=== PATIENT | male | born 1970 | race American Indian/Alaskan Native ===

== ENCOUNTER 2020-09-23 12:15 | Emergency (ER) | payer SELFPAY ==
[2020-09-23 12:51] VITALS: BP 191/101
--- NOTE | 2020-09-23 14:41 | Emergency Department Report ---
ED Upper Extremity Inj HPI - General Chief Complaint: Wound/Laceration Stated Complaint: SMASHED FINGER Time Seen by Provider: 09/23/20 14:27 Source: patient Mode of arrival: Ambulatory Limitations: No Limitations - History of Present Illness Initial Comments: 50-year-old -[place] male presents to the emergency room stating he smashed his left index finger. Patient states he is unaware of his last tetanus shot. Patient reports no past medical history. States he does not take any medications on a daily basis. He has no known drug allergies. This happened at work. MD Complaint: Injury to:: left, finger -: This afternoon - Related Data Previous Rx's Medication Instructions Recorded Last Taken Type Acetaminophen/Codeine [Tylenol 1 tab PO Q4HR PRN #15 tablet 09/23/20 Unknown Rx /Codeine # 3 tab] Ibuprofen [Motrin 800 MG tab] 800 mg PO Q8HR PRN #15 tablet 09/23/20 Unknown Rx cephALEXin [Keflex] 500 mg PO Q12HR #20 cap 09/23/20 Unknown Rx Allergies Allergy/AdvReac Type Severity Reaction Status Date / Time No Known Allergies Allergy Unverified 09/23/20 12:49 ED Review of Systems ROS: Stated complaint: SMASHED FINGER Other details as noted in HPI ED Past Medical Hx - Past Medical History Previous Medical History?: No - Surgical History Additional Surgical History: ELBOW - Medications Home Medications: Home Medications Medication Instructions Recorded Confirmed Last Taken Type Acetaminophen/Codeine [Tylenol 1 tab PO Q4HR PRN #15 tablet 09/23/20 Unknown Rx /Codeine # 3 tab] Ibuprofen [Motrin 800 MG tab] 800 mg PO Q8HR PRN #15 tablet 09/23/20 Unknown Rx cephALEXin [Keflex] 500 mg PO Q12HR #20 cap 09/23/20 Unknown Rx ED Physical Exam - General Limitations: No Limitations General appearance: alert - Head Head exam: Present: atraumatic, normocephalic - Eye Eye exam: Present: normal appearance - ENT ENT exam: Present: mucous membranes moist - Neck Neck exam: Present: normal inspection - Respiratory Respiratory exam: Absent: respiratory distress, accessory muscle use - Cardiovascular Cardiovascular Exam: Present: regular rate - Expanded Upper Extremity Exam Left Hand Wrist exam: Present: full ROM, swelling (Tip of left index), laceration, erythema Vascular: Present: normal capillary refill - Back Exam Back exam: Present: normal inspection - Neurological Exam Neurological exam: Present: alert, oriented X3, normal gait - Psychiatric Psychiatric exam: Present: normal affect, normal mood - Skin Skin exam: Present: warm, dry, intact, normal color. Absent: rash ED Course Vital Signs 09/23/20 12:50 Temperature 97.8 F Pulse Rate 81 Respiratory 18 Rate Blood Pressure 191/101 O2 Sat by Pulse 97 Oximetry - Laceration /Wound Repair Left Finger Wound Location: upper extremity Wound's Depth, Shape: into muscle, irregular Wound Explored: no foreign body removed Irrigated w/ Saline (ccs): 250 Betadine Prep?: Yes Anesthesia: 1% Lidocaine Volume Anesthetic (ccs): 3 Wound Debrided: minimal Wound Repaired With: sutures Suture Size/Type: 3:0, proline Number of Sutures: 5 Sterile Dressing Applied?: Yes Progress: Patient tolerated well ED Medical Decision Making - Radiology Data Radiology results: report reviewed [facility] [address] [place] [address] XRay Report Signed Patient: RITCHIE MESSINA MR#: [id number] : 1970 Acct:[id number] Age/Sex: 50 / M ADM Date: 09/23/20 Loc: ED Attending Dr: Ordering Physician: KENTRELL BUNCH Date of Service: 09/23/20 Procedure(s): XR finger(s) 2+V LT Accession Number(s): [id number] cc: KENTRELL BUNCH Fluoro Time In Minutes: LEFT FINGERS 2 VIEWS INDICATION / CLINICAL INFORMATION: smashed index finger COMPARISON: None available. FINDINGS: BONES / JOINT(S): There is a comminuted fracture of the distal tip of the distal phalanx of the index finger. There is soft tissue injury as well. SOFT TISSUES: There is soft tissue injury and swelling in the distal aspect of the index finger. ADDITIONAL FINDINGS: None. Signer Name: Lio Dye MD Signed: 09/23/2020 3:13 PM Workstation Name: [id number] Transcribed By: SS Dictated By: Lio Dye MD Electronically Authenticated By: Lio Dye MD Signed Date/Time: 07/1512 DD/ 11 TD/TT: - Medical Decision Making 50-year-old -[place] male presents to the emergency room stating he smashed his left index finger. Patient states he is unaware of his last tetanus shot. Patient reports no past medical history. States he does not take any medications on a daily basis. He has no known drug allergies. This happened at work. Patient has an open fracture left index finger comminuted turf fracture. Sutures patient will be placed on antibiotics he is needs to return in 10 to 14 days. Patient is to keep wound clean and dry bandage. Critical care attestation.: If time is entered above; I have spent that time in minutes in the direct care of this critically ill patient, excluding procedure time. ED Disposition Clinical Impression: Laceration of left index finger w/o foreign body w/o damage to nail, Open fracture of tuft of distal phalanx of finger Disposition: DC-01 TO HOME OR SELFCARE Is pt being admited?: No Does the pt Need Aspirin: No Condition: Stable Instructions: Laceration Care, Adult, [id number], Finger Fracture, Adult, [id number] Additional Instructions: Please keep wound clean and dry complete antibiotics take pain medication as needed. Return to the emergency room in 10 to 14 days to have sutures removed. Keep bandage clean and dry. Prescriptions: cephALEXin [Keflex] 500 mg PO Q12HR #20 cap Ibuprofen [Motrin 800 MG tab] 800 mg PO Q8HR PRN #15 tablet PRN Reason: Pain , Severe (7-10) Acetaminophen/Codeine [Tylenol /Codeine # 3 tab] 1 tab PO Q4HR PRN #15 tablet PRN Reason: Pain Forms: Work/School Release Form(ED)
--- NOTE | 2020-09-23 15:17 | XRay Report ---
LEFT FINGERS 2 VIEWS INDICATION / CLINICAL INFORMATION: smashed index finger COMPARISON: None available. FINDINGS: BONES / JOINT(S): There is a comminuted fracture of the distal tip of the distal phalanx of the index finger. There is soft tissue injury as well. SOFT TISSUES: There is soft tissue injury and swelling in the distal aspect of the index finger. ADDITIONAL FINDINGS: None. Signer Name: Lio Dye MD Signed: 09/23/2020 3:13 PM Workstation Name: [id number]
[2020-09-23] MEDS ORDERED: LIDOCAINE-MPF (1%) 10 MG/1 ML VIAL 5 ML INFILTRATI ONE (15:41)
[2020-09-23] MEDS ORDERED: IBUPROFEN 600 MG TAB PO ONE (15:42)
[2020-09-23] MEDS ORDERED: TETANUS,DIPH,PERTUSS(ACELL) VACCINE 0.5 ML SYRINGE IM ONE (17:00)
== END 2020-09-23 17:44 | disposition home or self-care (01) ==
LOC: ED 12:15
DX: S61.211A Laceration without foreign body of left index finger without damage to nail, initial encounter (principal); Z79.899 Other long term (current) drug therapy; Z98.890 Other specified postprocedural states; W45.8XXA Other foreign body or object entering through skin, initial encounter; Y93.89 Activity, other specified; Y92.89 Other specified places as the place of occurrence of the external cause; Y99.8 Other external cause status
CPT/HCPCS: 90471; 90715